=== PATIENT | male | born 1970 | race African-American/Black ===

== ENCOUNTER 2023-04-08 08:17 | Inpatient (IN) | payer MEDICAID ==
[~2023-04-08] VITALS: Ht 180.3 cm; Wt 90.8 kg
[~2023-04-08 08:17] MED LIST: ALBU8.5H17 IH; ALBU8HFA PO; AZIT250T PO; GUAI120L55 PO; METH-233 PO; NORCO10T PO; OMEP-84 PO; ONDA4TAB6 PO
[2023-04-08] MEDS ORDERED: methylPREDNISolone sod succ 125mg/2ml vial IV ONE (09:00)
[2023-04-08] MEDS ORDERED: normal saline 1000ml 1,000 ML IV ONE (09:00)
[2023-04-08] MEDS ORDERED: diphenhydrAMINE 50 mg/ml inj IV ONE (09:00)
[2023-04-08] MEDS ORDERED: iohexol 300mg/ml 100ml inj. ONE (09:08)
[2023-04-08] MEDS ORDERED: ipratropium/albuterol 3ml nebule NEB ONE (09:10)
[2023-04-08] MEDS ORDERED: albuterol 2.5 MG/3 ML nebule CONTNEB ONE (09:10)
[2023-04-08 09:23] LABS: BASOPHILS # (AUTO) 0.1 X10'3 (0-0.2); BASOPHILS % (AUTO) 0.9 % (0-1); EOSINOPHILS # (AUTO) 0.2 X10'3 (0-0.9); EOSINOPHILS % (AUTO) 2.2 % (0-6); HEMATOCRIT 40.5 % (42.0-52.0); LYMPHOCYTES # (AUTO) 3.3 X10'3 (1.1-4.8); LYMPHOCYTES % (AUTO) 46.1 % (21-51); MEAN CORPUSCULAR HEMOGLOBIN 31.3 PG (27.0-31.0); MEAN CORPUSCULAR HGB CONC 34.5 g/dL (33.0-36.5); MEAN CORPUSCULAR VOLUME 90.5 FL (78-98); MEAN PLATELET VOLUME 6.9 FL (7.4-10.4); MONOCYTES # (AUTO) 0.4 X10'3 (0-0.9); MONOCYTES % (AUTO) 5.3 % (2-12); NEUTROPHILS # (AUTO) 3.3 X10'3 (1.8-7.7); NEUTROPHILS % (AUTO) 45.5 % (42-75); PLATELET COUNT 273 X10'3 (140-440); RED BLOOD COUNT 4.48 X10'6 (4.70-6.10); RED CELL DISTRIBUTION WIDTH 13.2 % (11.5-14.5); WHITE BLOOD COUNT 7.2 X10'3 (4.5-11.0)
[2023-04-08 09:37] LABS: ALANINE AMINOTRANSFERASE 38 U/L (12-78); ALBUMIN 2.8 G/DL (3.4-5.0); ALBUMIN/GLOBULIN RATIO 0.8 (1.1-1.5); ALKALINE PHOSPHATASE 102 IU/L (46-116); ANION GAP 7 (8-16); ASPARTATE AMINO TRANSFERASE 20 U/L (10-37); BILIRUBIN,TOTAL 0.5 MG/DL (0.1-1.0); BLOOD UREA NITROGEN 14 MG/DL (7-18); BUN/CREATININE RATIO 9.8 (10.0-20.0); CALCIUM 8.2 MG/DL (8.5-10.1); CHLORIDE 105 MMOL/L (99-107); CREATININE 1.43 MG/DL (0.60-1.10); GLUCOSE 336 MG/DL (70-104); POTASSIUM 3.6 MMOL/L (3.5-5.1); SODIUM 139 MMOL/L (135-145); TOTAL CARBON DIOXIDE 26.6 MMOL/L (24-32); TOTAL PROTEIN 6.4 G/DL (6.4-8.2); eGFR 63 ML/MIN
[2023-04-08 09:41] LABS: ETHANOL < 0.010 GM/DL (0.0-0.010)
[2023-04-08] MEDS ORDERED: naloxone 2mg/2ml inj IV STA (11:11)
[2023-04-08] MEDS ORDERED: insulin Lispro (HumaLOG) vial - multi-dose SQ SCH (11:40)
[2023-04-08] MEDS ORDERED: pantoprazole 40mg IV 80 MG in normal saline 100ml IV soln 100 ML IV ONE (11:40)
[2023-04-08] MEDS ORDERED: vancomycin inj 1,000 MG in normal saline 250ml IV soln 250 ML IV ONE (12:45)
[2023-04-08] MEDS ORDERED: piperacillin/tazo 3.375gm/50ml 50 ML IV ONE (12:48)
[2023-04-08] MEDS ORDERED: vancomycin/NS 1 GM ADD-VANTAGE 250 ML IV ONE (12:49)
[2023-04-08] MEDS ORDERED: magnesium 2GM in 50ml NS 50 ML IV PRN (14:25)
[2023-04-08] MEDS ORDERED: potassium Cl 20 mEq SR tablet PO PRN ×2 (14:25)
[2023-04-08] MEDS ORDERED: HYDROmorphone/PF 0.2 MG/ML SYRINGE IV PRN (14:25)
[2023-04-08] MEDS ORDERED: magnesium hydroxide 30ml (MOM) UD suspension PO PRN (14:25)
[2023-04-08] MEDS ORDERED: metoclopramide 5 mg/ml inj IV PRN (14:25)
[2023-04-08] MEDS ORDERED: HYDROcodone/acetaminophen 5mg/325mg tablet PO PRN (14:25)
[2023-04-08] MEDS ORDERED: HYDROmorphone inj. 0.5 MG/0.5 ML DISP.SYRIN IV PRN (14:25)
[2023-04-08] MEDS ORDERED: acetaminophen 325mg tablet PO PRN ×2 (14:25)
[2023-04-08] MEDS ORDERED: HYDROcodone/acetaminophen 10/325mg tab PO PRN (14:25)
[2023-04-08] MEDS ORDERED: ondansetron 4mg rapidly disintigrating tab PO PRN (14:25)
[2023-04-08] MEDS ORDERED: LORazepam 2 mg/ml vial IV PRN (14:25)
[2023-04-08] MEDS ORDERED: magnesium Cl slow-release 64mg tablet PO PRN (14:25)
[2023-04-08] MEDS ORDERED: ondansetron/PF 4mg/2ml inj IV PRN (14:25)
[2023-04-08] MEDS ORDERED: mag hydrox/Alum hydrox/simeth 30ml oral suspension PO PRN (14:25)
[2023-04-08] MEDS ORDERED: magnesium 4gm in 100ml NS 100 ML IV PRN (14:25)
[2023-04-08] MEDS ORDERED: bisacodyl 10mg suppository rectal RC PRN (14:25)
[2023-04-08] MEDS ORDERED: acetaminophen 650mg rectal suppository RC PRN (14:25)
[2023-04-08] MEDS ORDERED: potassium Cl 40MEQ/1/2NS 520ml 520 ML IV PRN (14:25)
[2023-04-08] MEDS ORDERED: vancomycin/NS 1 GM ADD-VANTAGE 250 ML IV SCH (15:00)
--- NOTE | 2023-04-08 16:00 | NUR ---
Patient in room PCU 3025. I have received report from Guadalupe FLOYD and had the opportunity to ask questions and assume patient care.
[2023-04-08 16:21] LABS: HIV ANTIBODY 1&2 RAPID NON-REACTIVE (Neg)
[2023-04-08 16:25] LABS: CLARITY,URINE CLEAR (Clear); COLOR,URINE YELLOW (Yellow); GLUCOSE, URINE >=1000 mg/dl (Neg); KETONES,URINE NEGATIVE (Neg); LEUKOCYTE ESTERASE ,URINE NEGATIVE (Neg); NITRITES, URINE NEGATIVE (Neg); OCCULT BLOOD,URINE MODERATE (Neg); PH,URINE 5.5 (4.8-8.0); PROTEIN,URINE 100 mg/dl (Neg); UROBILINOGEN,URINE 0.2 E.U/dL (0.2-1.0)
[2023-04-08 16:32] LABS: UA COLLECTION TYPE CLN CATCH MIDSTREAM
[2023-04-08 16:33] LABS: URINE AMPHETAMINE SCREEN POSITIVE (Neg); URINE BARBITUATE SCREEN NEGATIVE (Neg); URINE BENZODIAZEPINES SCREEN NEGATIVE (Neg); URINE CANNABINOID SCREEN POSITIVE (Neg); URINE COCAINE SCREEN NEGATIVE (Neg); URINE METHADONE SCREEN NEGATIVE (Neg); URINE OPIATE SCREEN NEGATIVE (Neg); URINE PHENCYCLIDINE SCREEN NEGATIVE (Neg)
[2023-04-08 16:37] LABS: BACTERIA,URINE NONE SEEN /HPF (Neg); SQUAMOUS EPITHELIAL CELL,UR FEW /LPF (FEW)
[2023-04-08 16:38] LABS: MUCUS STRANDS NONE SEEN /LPF (Neg); WBC,URINE 0-4 /HPF (0-4)
[2023-04-08] MEDS ORDERED: NO HOME MEDS (17:01)
[2023-04-08 19:00] VITALS: BP 139/97
[2023-04-08 19:48] LABS: H PYLORI ANTIBODY NEGATIVE (Neg)
[2023-04-08] MEDS: K and/or MAG REPLACEMENT MC SCH (20:00)
[2023-04-08] MEDS ORDERED: temazepam 15mg capsule PO PRN (21:00)
[2023-04-08 22:00] VITALS: BP 129/93
[2023-04-08] MEDS: methylPREDNISolone sod succ/PF 40mg inj. IV SCH (22:20)
[2023-04-08] MEDS: pantoprazole 40MG/NS 100ML BAG 100 ML IV SCH (22:20)
--- NOTE | 2023-04-08 22:24 | NUR ---
Patient in room PCU 3025. I have received report from Danielle FLOYD and had the opportunity to ask questions and assume patient care.
[2023-04-08] MEDS: piperacillin/tazo 3.375gm/50ml 50 ML IV SCH (23:42)
[2023-04-08] MEDS: heparin, porcine 5000 units/ml vial SQ SCH (23:45)
[2023-04-08] MEDS: docusate sod 100mg capsule PO SCH (23:48)
[2023-04-08] MEDS: diatr meglu/diatrizoate 30ml oral sol.-(3 dose) bottle PO SCH (23:48)
[2023-04-09 02:00] VITALS: BP 118/88
[2023-04-09 06:00] VITALS: BP 120/90
--- NOTE | 2023-04-09 06:36 | NUR ---
Problems reprioritized. Patient report given, questions answered & plan of care reviewed with Danielle FLOYD.
[2023-04-09 07:07] LABS: BASOPHILS # (AUTO) 0.1 X10'3 (0-0.2); BASOPHILS % (AUTO) 0.5 % (0-1); EOSINOPHILS % (AUTO) 0 % (0-6); HEMATOCRIT 42.4 % (42.0-52.0); HEMOGLOBIN 14.3 g/dl (14.0-17.9); LYMPHOCYTES # (AUTO) 1.8 X10'3 (1.1-4.8); LYMPHOCYTES % (AUTO) 10.8 % (21-51); MEAN CORPUSCULAR HEMOGLOBIN 30.4 PG (27.0-31.0); MEAN CORPUSCULAR HGB CONC 33.6 g/dL (33.0-36.5); MEAN CORPUSCULAR VOLUME 90.4 FL (78-98); MEAN PLATELET VOLUME 7.5 FL (7.4-10.4); MONOCYTES # (AUTO) 0.4 X10'3 (0-0.9); MONOCYTES % (AUTO) 2.3 % (2-12); NEUTROPHILS # (AUTO) 14.7 X10'3 (1.8-7.7); NEUTROPHILS % (AUTO) 86.4 % (42-75); PLATELET COUNT 272 X10'3 (140-440); RED BLOOD COUNT 4.69 X10'6 (4.70-6.10); RED CELL DISTRIBUTION WIDTH 12.8 % (11.5-14.5)
[2023-04-09] MEDS: diatr meglu/diatrizoate 30ml oral sol.-(3 dose) bottle PO SCH ×2 (07:19→10:17)
[2023-04-09 07:28] LABS: ALANINE AMINOTRANSFERASE 32 U/L (12-78); ALBUMIN 2.5 G/DL (3.4-5.0); ALBUMIN/GLOBULIN RATIO 0.7 (1.1-1.5); ALKALINE PHOSPHATASE 102 IU/L (46-116); ANION GAP 10 (8-16); ASPARTATE AMINO TRANSFERASE 18 U/L (10-37); BILIRUBIN,TOTAL 0.7 MG/DL (0.1-1.0); BLOOD UREA NITROGEN 14 MG/DL (7-18); BUN/CREATININE RATIO 9.9 (10.0-20.0); CALCIUM 8.4 MG/DL (8.5-10.1); CHLORIDE 107 MMOL/L (99-107); CREATININE 1.41 MG/DL (0.60-1.10); GLUCOSE 272 MG/DL (70-104); MAGNESIUM 1.7 MG/DL (1.5-2.4); POTASSIUM 3.8 MMOL/L (3.5-5.1); SODIUM 141 MMOL/L (135-145); TOTAL CARBON DIOXIDE 23.8 MMOL/L (24-32); TOTAL PROTEIN 6.3 G/DL (6.4-8.2); eGFR 64 ML/MIN
[2023-04-09] MEDS: piperacillin/tazo 3.375gm/50ml 50 ML IV SCH ×2 (08:00→18:23)
[2023-04-09] MEDS: K and/or MAG REPLACEMENT MC SCH ×2 (08:00→20:55)
[2023-04-09] MEDS: docusate sod 100mg capsule PO SCH ×2 (08:00→20:00)
[2023-04-09] MEDS: pantoprazole 40MG/NS 100ML BAG 100 ML IV SCH ×2 (08:07→21:26)
[2023-04-09] MEDS: methylPREDNISolone sod succ/PF 40mg inj. IV SCH ×3 (08:10→21:27)
[2023-04-09] MEDS: heparin, porcine 5000 units/ml vial SQ SCH ×2 (08:17→21:27)
[2023-04-09] MEDS ORDERED: iohexol 300mg/ml 100ml inj. ONE (10:03)
[2023-04-09] MEDS: normal saline 1000ml 1,000 ML IV SCH ×2 (10:25→20:25)
[2023-04-09 11:00] VITALS: BP 131/95
[2023-04-09] MEDS: vancomycin/NS 1 GM ADD-VANTAGE 250 ML IV SCH ×2 (11:00→23:08)
--- NOTE | 2023-04-09 11:28 | NUR ---
DM consult: Per EMR pt with T2DM, noncompliant with reports of not taking DM medications for two years. Current A1c 9.1% with no A1c hx in EMR. Unsure if pt fully oriented given EMR documentation. TC to bedside RN who states pt wakes for interviews but sleepy and mumbly. Per RN pt may be more appropriate for DM education at another time. Will continue to follow and provide DM education as appropriate. Addendum: 04/09/23 at [address] Amended: Links added.
[2023-04-09] MEDS ORDERED: DEXTROSE 15 GM of carb/4 tabs (each vial/BOTTLE has 4 tablets) PO PRN ×2 (12:40)
[2023-04-09] MEDS ORDERED: dextrose 50%-water 50ml dispensing syringe IV PRN ×2 (12:40)
[2023-04-09] MEDS ORDERED: MESSAGE TO PHARMACY PO ONE (12:40)
[2023-04-09] MEDS ORDERED: insulin Lispro (HumaLOG) vial - multi-dose SQ SCH (12:40)
[2023-04-09] MEDS ORDERED: glucagon, human recombinant 1mg kit SUBCUT PRN (12:40)
[2023-04-09 15:00] VITALS: BP 137/82
[2023-04-09 18:30] VITALS: BP 118/75
--- NOTE | 2023-04-09 18:50 | NUR ---
Problems reprioritized. Patient report given, questions answered & plan of care reviewed with Del FLOYD, patient stable at transfer of care.
[2023-04-09] MEDS ORDERED: insulin glargine (Lantus) pen - multi-dose SQ SCH (21:00)
[2023-04-09 22:00] VITALS: BP 138/83
[2023-04-10] MEDS: piperacillin/tazo 3.375gm/50ml 50 ML IV SCH (00:52)
[2023-04-10] MEDS: methylPREDNISolone sod succ/PF 40mg inj. IV SCH ×2 (01:57→10:40)
[2023-04-10 02:12] VITALS: BP 112/65
[2023-04-10 06:00] VITALS: BP 115/65
--- NOTE | 2023-04-10 06:33 | NUR ---
Problems reprioritized. Patient report given, questions answered & plan of care reviewed with Danielle.
[2023-04-10 06:47] LABS: EOSINOPHILS % (AUTO) 0 % (0-6); LYMPHOCYTES # (AUTO) 1.6 X10'3 (1.1-4.8); MONOCYTES # (AUTO) 0.3 X10'3 (0-0.9); MONOCYTES % (AUTO) 1.9 % (2-12); RED BLOOD COUNT 4.61 X10'6 (4.70-6.10); RED CELL DISTRIBUTION WIDTH 13.1 % (11.5-14.5)
[2023-04-10 06:50] LABS: MEAN CORPUSCULAR HEMOGLOBIN 30.3 PG (27.0-31.0); MEAN CORPUSCULAR HGB CONC 33.3 g/dL (33.0-36.5); MEAN CORPUSCULAR VOLUME 91.1 FL (78-98); PLATELET COUNT 252 X10'3 (140-440); WHITE BLOOD COUNT 15.9 X10'3 (4.5-11.0)
[2023-04-10 06:51] LABS: BASOPHILS # (AUTO) 0.1 X10'3 (0-0.2); BASOPHILS % (AUTO) 0.3 % (0-1); LYMPHOCYTES % (AUTO) 9.9 % (21-51); MEAN PLATELET VOLUME 7.4 FL (7.4-10.4); NEUTROPHILS % (AUTO) 87.9 % (42-75)
[2023-04-10 07:02] LABS: ALANINE AMINOTRANSFERASE 33 U/L (12-78); ALBUMIN 2.4 G/DL (3.4-5.0); ALBUMIN/GLOBULIN RATIO 0.7 (1.1-1.5); ALKALINE PHOSPHATASE 91 IU/L (46-116); ANION GAP 8 (8-16); ASPARTATE AMINO TRANSFERASE 19 U/L (10-37); BILIRUBIN,TOTAL 0.6 MG/DL (0.1-1.0); BLOOD UREA NITROGEN 15 MG/DL (7-18); BUN/CREATININE RATIO 10.9 (10.0-20.0); CALCIUM 8.3 MG/DL (8.5-10.1); CHLORIDE 108 MMOL/L (99-107); CREATININE 1.37 MG/DL (0.60-1.10); GLUCOSE 277 MG/DL (70-104); MAGNESIUM 1.8 MG/DL (1.5-2.4); POTASSIUM 3.7 MMOL/L (3.5-5.1); SODIUM 140 MMOL/L (135-145); TOTAL CARBON DIOXIDE 23.6 MMOL/L (24-32); TOTAL PROTEIN 5.9 G/DL (6.4-8.2); eGFR 66 ML/MIN
[2023-04-10] MEDS ORDERED: fentaNYL/PF 50MCG/1 ML 2ML syringe ONE (07:18)
[2023-04-10] MEDS ORDERED: MIDAZolam 1 MG/ML 5ML VIAL ONE ×2 (07:18→07:19)
[2023-04-10] MEDS ORDERED: LIDOcaine Viscous 15ml cup ONE (07:19)
[2023-04-10 07:28] VITALS: BP 108/81
[2023-04-10 08:16] VITALS: BP 128/79
[2023-04-10 08:26] VITALS: BP 144/80
[2023-04-10 08:36] VITALS: BP 139/90
--- NOTE | 2023-04-10 10:33 | NUR ---
DM consult: Pt present with an A1c 9.1%, BG 252-322 mg/dL for the past two days, and currently on the glycemic protocol. Pt currently on clear liquid diet, discussed diet advancement progress with RN, RN states physician ok to advance to carb controlled diet today. Noted [employer]IOR [employer]GE[employer] note on 04/09 ok to advance to regular textures. Pt awake at bedside during time of visit. Pt reports having T2DM for a few years but has not seen his provider nor taken metformin medication for over 2 years. Pt did not know his BG average in the past nor his A1c hx. Pt states at one point in [place] his Dr prescribed insulin but "I absolutely cannot and will not do needles". Provided verbal and written detailed diabetic nutrition education to pt. After discussion pt states "If I need insulin again, my son might be able to give me the shots". Encouraged pt to discuss diabetes medication concerns and barriers with physician. Provided pt with written education materials and RD contact information. Encouraged pt to reach out for any nutrition questions or concerns. Will continue to monitor. Addendum: 04/10/23 at [address] Amended: Links added. Addendum: 04/10/23 at [address] JODY has reviewed and approves of above note.
[2023-04-10] MEDS: pantoprazole 40MG/NS 100ML BAG 100 ML IV SCH (10:40)
[2023-04-10] MEDS: heparin, porcine 5000 units/ml vial SQ SCH (10:40)
[2023-04-10] MEDS ORDERED: GLU850T PO (12:51)
[2023-04-10] MEDS ORDERED: PANT-47 PO (12:51)
--- NOTE | 2023-04-10 13:51 | NUR ---
Pt stable for discharge per Dr. Giron. All discharge instructions reviewed with patient and all questions answered, pt verbalized understanding. New medications ordered and sent to [facility] in [place]. PIV discontinued, cannula intact. Tele discontinued. All belongings collected and sent with patient. Wheeled to lobby via nursing staff and picked up by daughter.
[2023-04-10] MEDS ORDERED: VANCOMYCIN LEVEL IV ONE (22:30)
== END 2023-04-10 13:47 | disposition home or self-care (01) | DRG 254 ==
LOC: ER 08:18 → PCU 3S 14:41
PROVIDERS: ADMIT Family Medicine; ATTEND Family Medicine
PROC: BW2F1ZZ Computerized Tomography (CT Scan) of Neck using Low Osmolar Contrast (ICD-10-PCS; 2023-04-08)
PROC: BW251ZZ Computerized Tomography (CT Scan) of Chest, Abdomen and Pelvis using Low Osmolar Contrast (ICD-10-PCS; 2023-04-09)
PROC: 0DB98ZX Excision of Duodenum, Via Natural or Artificial Opening Endoscopic, Diagnostic (ICD-10-PCS; principal; 2023-04-10)
PROC: 0DB48ZX Excision of Esophagogastric Junction, Via Natural or Artificial Opening Endoscopic, Diagnostic (ICD-10-PCS; 2023-04-10)
PROC: 0DB78ZX Excision of Stomach, Pylorus, Via Natural or Artificial Opening Endoscopic, Diagnostic (ICD-10-PCS; 2023-04-10)
DX: R13.10 Dysphagia, unspecified (principal); E11.9 Type 2 diabetes mellitus without complications; G47.30 Sleep apnea, unspecified; I10 Essential (primary) hypertension; K29.70 Gastritis, unspecified, without bleeding; K29.80 Duodenitis without bleeding; K57.90 Diverticulosis of intestine, part unspecified, without perforation or abscess without bleeding; G89.29 Other chronic pain; T59.811A Toxic effect of smoke, accidental (unintentional), initial encounter; M54.9 Dorsalgia, unspecified; Y93.89 Activity, other specified; Y92.89 Other specified places as the place of occurrence of the external cause; Y99.8 Other external cause status; Z88.6 Allergy status to analgesic agent
CPT/HCPCS: 36415; 43239; 70491; 71045; 71260; 74177; 80053; 80305; 80320; 81001; 82948; 83036; 83605; 83735; 84145; 84443; 84484; 85025; 85651; 86140; 86677; 86703; 87040; 87081; 92508; 92616; 94640; 94760; 97161; 97530; 99152; 99285; A4620; A7015; C9113; G0378; J1200; J1644; J1815; J2250; J2310; J2543; J2920; J2930; J3010; J3370; J3490; J7030; J7040; Q9963; Q9967